=== PATIENT | female | born 1955 | race African-American/Black ===

== ENCOUNTER 2016-10-18 12:53 | Emergency (ER) | payer MEDICARE ==
[~2016-10-18 12:53] MED LIST: ACETAMINOPHEN PO; AMITRIPTYLINE H25 MG PO; AMLODIPINE BESYL5 MG PO; ANTIVERT PO; ASPIRIN PO; ASPIRIN81 M1 PO; BAYER CHEWABLE81 MG PO; BISOPROLOL-HCTZ1 TA2 PO; BLOOD PRESSURE MED?; CARDIZEM CD PO; CARDIZEM SR PO; CARDIZEM60 MG PO; CARTIA XT PO; CIPRO PO; CLARITIN10 M2 PO; CLONAZEPAM0.5 MG PO; COLACE PO; DARVOCET-N 1001 TA2 PO; DIAZEPAM PO; DILTIAZEM ER60 MG PO; FLONASE 0.05% N16 G1; GLUCOPHAGE500 M1 PO; KLONOPIN PO; KLONOPIN0.5 MG PO; LEVOTHROID50 MCG PO; LEVOTHYROXINE50 MCG PO; LOC PO; MAG-OXIDE400 MG PO; MECLIZINE HCL25 M1 PO; MECLIZINE HCL25 M2 PO; MEDROL4 MG/DOSE- PO; METFORMIN HCL500 M1 PO; METFORMIN PO; MOTION RELIEF25 MG PO; MOTION SICKNESS25 M5 PO; NAPROSYN-EC500 MG PO; NAPROXEN PO; NORCO 7.5-3251 EACH PO; NORVASC PO; PHENERGAN PO; PRAVACHOL20 MG PO; PRAVASTATIN SOD20 MG PO; SYNTHROID PO; SYNTHROID0.05 MG PO; VASOTEC PO; VASOTEC20 MG PO; ZITHROMAX PO; ZOCOR20 MG; ZOFRANODT PO; [UNRECOGNIZED DRUG - REMARK]
[2016-10-18 17:12] LABS: BASOPHIL% 0.4 % (0-2.5); EOSINOPHIL% 0.3 % (0.0-7.0); HEMATOCRIT 39.7 % (35.0-45.0); HEMOGLOBIN 13.2 gm/dL (12.0-16.0); LYMPHOCYTE# 1.4 X10e3 (1.0-3.5); MEAN CELL VOLUME 94.5 FL (83-96); MEAN CORPUSCULAR HEMOGLOBIN 31.5 PG (28-34); MEAN CORPUSCULAR HGB CONC 33.3 g/dL (30-36); MEAN PLATELET VOLUME 10.5 FL (6.5-11.5); MONOCYTE# 0.3 X10e3 (0-1.0); MONOCYTE% 3.4 % (3.0-12.0); NEUTROPHIL% 77.9 % (40-75); PLATELET COUNT 154 X10e3 (140-420); WHITE BLOOD COUNT 7.7 X10e3 (4.0-10.5)
[2016-10-18 17:13] LABS: DIFF IND NO
[2016-10-18 17:37] LABS: BUN/CREATININE RATIO 14.28; CALCIUM SERUM 9.4 mg/dL (8.4-10.2); CREATININE SERUM 0.7 mg/dL (0.6-1.4); GLOM FILT RATE Estimated 107.6 mL/min (>60); POTASSIUM 3.4 mmol/L (3.5-5.1)
== END 2016-10-18 18:08 | disposition home or self-care (01) ==
LOC: CED 12:53
PROVIDERS: Emergency Medicine
DX: T78.3XXA Angioneurotic edema, initial encounter (principal); Z90.49 Acquired absence of other specified parts of digestive tract; Z98.51 Tubal ligation status; Z79.82 Long term (current) use of aspirin; Z79.899 Other long term (current) drug therapy
CPT/HCPCS: 80048; 85025; 99283; J1200; J2930

== ENCOUNTER 2016-11-04 13:00 | Emergency (ER) | payer MEDICARE ==
[~2016-11-04] VITALS: Ht 175.3 cm; Wt 73.5 kg
--- NOTE | ~2016-11-04 | CR230 ---
[facility] A Service of [facility] & [facility] RADIOLOGY TEXT RESULTS PATIENT: YOLANDA BA LOCATION: [facility] : 53 UNIT #: [id number] AGE: [address]: Dora England APRN SEX: F ORDER DR: [id number] [facility] [address] [place], [place] [address] [id number] E MR#: [id number] Acc #: [id number] NAME: YOLANDA BA : 1955 SEX: F STUDY DATE/TIME: 11/04/2016 15:45 UNIT: [facility] ROOM: STUDY DESCRIPTION: CR Shoulder Min 2 View Rt Attending Physician: Dora England A.P.R.N. Ordering Physician: Fernando Zaidi M.D. Primary Care Physician: Erika Heart A.P.R.N. MEDICAL IMAGING REPORT This report is preliminary unless electronic signature is present EXAM Right shoulder, 11/04/2016. INDICATIONS 61-year-old female with posterior shoulder pain 5 days. No known injury. TECHNIQUE 2 views of the right shoulder. COMPARISON No comparisons. FINDINGS There is mild degenerative change of the AC joint. No acute fracture. No shoulder separation injury. IMPRESSION Mild degenerative change; otherwise negative. Dictated by... Arthur Moran M.D. THIS IS AN ELECTRONICALLY VERIFIED REPORT Arthur Moran M.D. at 11/05/2016 2:23 PM Abraham TD: 11/05/2016 10:42 JOB #: [id number] MEDICAL IMAGING REPORT Page 1 of 1 COPY
== END 2016-11-04 17:10 | disposition home or self-care (01) ==
LOC: CED 13:00 → CFTX 13:00
DX: S46.011A Strain of muscle(s) and tendon(s) of the rotator cuff of right shoulder, initial encounter (principal); Z86.19 Personal history of other infectious and parasitic diseases; E03.9 Hypothyroidism, unspecified; E78.00 Pure hypercholesterolemia, unspecified; X58.XXXA Exposure to other specified factors, initial encounter; Y92.9 Unspecified place or not applicable
CPT/HCPCS: 73030; 99283

== ENCOUNTER → 2016-11-22 | Outpatient (CLI) | payer MEDICARE ==
--- NOTE | ~2016-11-22 | MR165 ---
[facility] A Service of [facility] & [facility] RADIOLOGY TEXT RESULTS PATIENT: YOLANDA BA LOCATION: [facility] : 53 UNIT #: [id number] AGE: [address]: Abdirahman Luna MD SEX: F ORDER DR: [id number] [address] [address] [id number] O MR#: [id number] Acc #: [id number] NAME: YOLANDA BA : 1955 SEX: F STUDY DATE/TIME: 11/22/2016 11:08 UNIT: [facility] ROOM: STUDY DESCRIPTION: MR Shoulder Wo Contrast Rt Attending Physician: Abdirahman Luna M.D. Referring Physician: Abdirahman Luna M.D. Ordering Physician: Abdirahman Luna M.D. Primary Care Physician: Erika Heart A.P.R.N. MRI CENTER REPORT This report is preliminary unless electronic signature is present. EXAM MRI of the right shoulder without contrast HISTORY 61-year-old female right shoulder pain for 1 month. Limited range of motion. TECHNIQUE Multiplanar, multiecho imaging is performed of the right shoulder utilizing a high-field magnet and dedicated protocol. FINDINGS Mild AC joint arthropathy with inferiorly-directed distal, clavicular, and acromial osteophytes but no significant mass effect on the rotator cuff. There is a small amount of periarticular edema suggesting some active inflammation. Marrow signal within the proximal humerus and glenoid appears normal. There is extensive supraspinatus and infraspinatus tendinopathy with a partial-thickness bursal-sided tear involving the footplate insertion of the supraspinatus tendon. This measures about 12 mm medial to lateral and estimated about 14 mm AP dimension. This involves about 50% of the footplate insertion. Teres minor and subscapularis tendons appear intact. No muscle atrophy or edema. The superior labrum, biceps anchor, and long tendon of the biceps appears intact. The anterior and posterior labrum are unremarkable. Extraarticular soft tissues unremarkable. IMPRESSION 1. 12 x 14 mm partial-thickness bursal-sided tear distal footplate insertion supraspinatus tendon. 2. Moderate diffuse supraspinatus and infraspinatus tendinopathy [facility]. [facility] A Service of [facility] & [facility] RADIOLOGY TEXT RESULTS PATIENT: YOLANDA BA LOCATION: [facility] : 53 UNIT #: [id number] AGE: [address]: Abdirahman Luna MD SEX: F ORDER DR: with some adjacent bursal inflammation. 3. Mild AC joint arthropathy with some periarticular edema. Dictated by... Elyssa Middleton M.D. THIS IS AN ELECTRONICALLY VERIFIED REPORT Elyssa Middleton M.D. at 11/23/2016 4:04 PM RIK/jermaine TD: 11/23/2016 11:34 JOB #: [id number] MRI CENTER REPORT Page 1 of 1
== END | disposition home or self-care (01) ==
LOC: SMRI 10:03
DX: M25.511 Pain in right shoulder (principal); M75.111 Incomplete rotator cuff tear or rupture of right shoulder, not specified as traumatic; M75.81 Other shoulder lesions, right shoulder; M19.011 Primary osteoarthritis, right shoulder; M75.51 Bursitis of right shoulder
CPT/HCPCS: 73221